=== PATIENT | male | born 1955 | race Caucasian/White ===

== ENCOUNTER 2017-08-20 08:40 | Day surgery (SDC) | payer OTHER ==
[2017-08-15 09:27] VITALS: BMI 28.3
[~2017-08-20 08:40] MED LIST: LACTATED RINGERS 1,000 ML IV SCH
[2017-08-20 09:12] VITALS: RESP 18; TEMP 97.9
[2017-08-20] MEDS ORDERED: LIDOCAINE 1% 20 ML VIAL (10MG/ML) FOR IV START INTRADERMA ONE (09:30)
[2017-08-20] MEDS ORDERED: PROPOFOL 10 MG/ML 20 ML VIAL IV ONE (10:09)
[2017-08-20] MEDS ORDERED: LIDOCAINE 1% INJ 10MG/ML (20 ML MDV) ONE (10:09)
--- NOTE | 2017-08-20 10:42 | P.PCN ---
Date of Procedure: 08/20/17 Procedure(s) Performed: procedure: Colonoscopy and biopsy. Preoperative diagnosis: Screening for neoplasia. Postoperative diagnosis: 1. Mild sigmoid diverticulosis with no evidence of acute diverticulitis or strictures. 2. Diminutive polyps in the distal sigmoid and rectum consistent with hyperplastic polyps biopsied but no large polyps or cancer. Preparation: HalfLytely prep. Sedation: Was provided by anesthesia. brief clinical history: The patient is a 62-year-old male who is referred for this evaluation for screening for neoplasia age being his risk factor. no family history of colon cancer. He has no abdominal complaints, bleeding or anemia. this would be his first colonoscopy. Procedure: With the patient on his left lateral decubitus position and after informed consent and adequate sedation, the perianal area was inspected and it did not show any fissures or fistulas. There were no masses felt on digital rectal examination. The Olympus CFQ 160L video colonoscope was then inserted in the rectum in the usual fashion and advanced to the cecum. There was occasional small diverticular orifices seen scattered in the sigmoid with no evidence of acute diverticulitis or strictures. Several diminutive polyps were seen scattered in the distal sigmoid and proximal rectum with no large polyps or cancer. I obtained biopsies from the distal sigmoid than I retroflexed the endoscope in the rectum before the endoscope was withdrawn. The patient tolerated the procedure well. Plan: The patient was reassured. Discussed dietary measures. He will follow up with you as planned and I recommended repeat exam in 5 years.
[2017-08-20 10:58] VITALS: BP 124/84; PULSE 88
== END 2017-08-20 11:40 | disposition home or self-care (01) ==
LOC: ORWHC2ENDO 08:40 → EDSEX 09:35 → ORWHC2ENDO 11:40
DX: Z12.11 Encounter for screening for malignant neoplasm of colon (principal); D12.5 Benign neoplasm of sigmoid colon; K63.5 Polyp of colon; K57.30 Diverticulosis of large intestine without perforation or abscess without bleeding; J44.9 Chronic obstructive pulmonary disease, unspecified; I10 Essential (primary) hypertension; E78.5 Hyperlipidemia, unspecified; N20.0 Calculus of kidney; Z79.899 Other long term (current) drug therapy
CPT/HCPCS: 45380; 88305; J2001; J2704